=== PATIENT | female | born 1990 | race African-American/Black ===

== ENCOUNTER 2017-08-15 19:10 | Emergency (ER) | payer SELFPAY ==
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
== END 2017-08-15 21:28 | disposition home or self-care (01) ==
LOC: JD.ED 19:10
DX: J02.9 Acute pharyngitis, unspecified (principal)
CPT/HCPCS: 87081; 87430; 99282; 99283